=== PATIENT | female | born 1975 | race Caucasian/White ===

== ENCOUNTER 2017-01-03 00:39 | Inpatient (IN) | payer OTHER ==
[~2017-01-03] VITALS: Ht 160 cm; Wt 94.3 kg
--- NOTE | 2017-01-03 02:42 | ED ORDER SUMMARY ---
..... Patient: MARTINE BALDWIN OrderSheet [facility] VisitID: [id number] [place] [address] 41y, F Registration Date/Time: 01/03/2017 ORDER SHEET Weight: 88.4 kg (stated) Allergies: No Known Drug Allergy GENERAL ORDERS: US Abdomen Limited (Yes) Urgent (:01/03/2017 Ryley MENSAH) (Ack 1:21 Janiya) (1:24 EHassan R.N.) CBC w Diff Urgent (:01/03/2017 Ryley MENSAH) (Ack 1:21 Janiya) (1:24 EHassan R.N.) CMP Urgent (:01/03/2017 Ryley MENSAH) (Ack 1:22 Janiya) (1:24 EHassan R.N.) Amylase Urgent (:01/03/2017 Ryley MENSAH) (Ack 1:22 Janiya) (1:24 EHassan R.N.) Lipase Urgent (:01/03/2017 Ryley MENSAH) (Ack 1:22 Janiya) (1:24 EHassan R.N.) Urine Urgent (:01/03/2017 Ryley MENSAH) (Ack 1:22 Janiya) (1:24 EHassan R.N.) UA-Culture if indicated Urgent (:01/03/2017 Ryley MENSAH) (Ack 1:22 Janiya) (1:24 EHassan R.N.) MEDICATION ORDERS: GI Cocktail WHITE PO 50 mL (NOW) (:01/03/2017 Ryley MENSAH) (Ack 1:18 HSoule) (1:25 TLewis R.N.) IV FLUIDS: Zofran IV 4 mg (NOW) (:01/03/2017 Ryley MENSAH) (Ack 1:18 HSoule) (1:23 TLewis R.N.) IV Saline Lock (:01/03/2017 Ryley MENSAH) (Ack 1:18 HSoule) (1:23 Nitin R.N.) Cefotan IV 1 gm (NOW) (02:45 01/03/2017 Ryley MENSAH) (Ack 2:46 Brayan R.N.) (2:55 Brayan R.N.) Demerol IV 12.5 mg (NOW) (02:46 01/03/2017 Ryley MENSAH) (Ack 2:46 Brayan R.N.) (2:55 Brayan R.N.) ORDER SHEET NOTES: [Electronically signed by Jacob Meyer R.N. (03:29 01/03/2017)] [Electronically signed by Rashad Alejandro MD (09:34 01/03/2017)] [Electronically locked/signed by Jacob Meyer R.N. (03:29 01/03/2017)]
--- NOTE | 2017-01-03 02:42 | ED ORDER SUMMARY ---
..... Patient: MARTINE BALDWIN OrderSheet [facility] VisitID: [id number] [place] [address] 41y, F Registration Date/Time: 01/03/2017 ORDER SHEET Weight: 88.4 kg (stated) Allergies: No Known Drug Allergy GENERAL ORDERS: US Abdomen Limited (Yes) Urgent (:01/03/2017 Ryley MENSAH) (Ack 1:21 Janiya) (1:24 EHassan R.N.) CBC w Diff Urgent (:01/03/2017 Ryley MENSAH) (Ack 1:21 Janiya) (1:24 EHassan R.N.) CMP Urgent (:01/03/2017 Ryley MENSAH) (Ack 1:22 Janiya) (1:24 EHassan R.N.) Amylase Urgent (:01/03/2017 Ryley MENSAH) (Ack 1:22 Janiya) (1:24 EHassan R.N.) Lipase Urgent (:01/03/2017 Ryley MENSAH) (Ack 1:22 Janiya) (1:24 EHassan R.N.) Urine Urgent (:01/03/2017 Ryley MENSAH) (Ack 1:22 Janiya) (1:24 EHassan R.N.) UA-Culture if indicated Urgent (:01/03/2017 Rlyey MENSAH) (Ack 1:22 Janiya) (1:24 EHassan R.N.) MEDICATION ORDERS: GI Cocktail WHITE PO 50 mL (NOW) (:01/03/2017 Ryley MENSAH) (Ack 1:18 HSoule) (1:25 TLewis R.N.) IV FLUIDS: Zofran IV 4 mg (NOW) (:01/03/2017 Ryley MENSAH) (Ack 1:18 HSoule) (1:23 TLewis R.N.) IV Saline Lock (:01/03/2017 Ryley MENSAH) (Ack 1:18 HSoule) (1:23 Nitin R.N.) Cefotan IV 1 gm (NOW) (02:45 01/03/2017 Ryley MENSAH) (Ack 2:46 Brayan R.N.) (2:55 Brayan R.N.) Demerol IV 12.5 mg (NOW) (02:46 01/03/2017 Ryley MENSAH) (Ack 2:46 Brayan R.N.) (2:55 Brayan R.N.) ORDER SHEET NOTES: [Electronically signed by Jacob Meyer R.N. (03:29 01/03/2017)] [Electronically signed by Rashad Alejandro MD (09:34 01/03/2017)] [Electronically locked/signed by Jacob Meyer R.N. (03:29 01/03/2017)]
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
--- NOTE | 2017-01-03 02:42 | ED NURSING NOTES ---
Clinical Report - Nurses [facility] [address] [place] [address] 01/03/2017 0:42 Patient: MARTINE BALDWIN TRIAGE Triage time 0046 AM. Acuity: LEVEL 3. Chief Complaint: ABDOMINAL PAIN and NAUSEA. Alert. No acute distress. SEPSIS SCREEN: Sepsis Screen. Negative (no infection suspected/documented). EUGENIA COMA SCORE: Eugenia Coma Scale: 15- eyes open spontaneously (4); best verbal response- oriented x 4 (5); best motor response- obeys commands (6). --00:58 Cami Lacey R.N. 00:46 01/03/17. BP: 112/59. HR: 75. RR: 18. O2 saturation: 100%. Temp: 97.6 F (oral). Pain level now: 08/16. --00:58 Cami Lacey R.N. Weight: 88.4 kg stated. Height/Length: 63 inches Per Patient. BMI: 34.5. --00:51 Cami Lacey R.N. Medications Fentramine. --00:51 Cami Lacey R.N. Medication/allergy information source: the patient. --00:58 Caim Lacey R.N. Allergies No Known Drug Allergy. --02:44 Selvin Alfredo R.N. History Arrived by private vehicle. Historian: patient. Accompanied by family. Primary physician (Dr. Donovan). ( Pt states around 11 pm pt was woken up from sharp pain from right upper abdomen and radiates to lower back side, she states feeling nauseous with it ,no vomiting, has experienced chills and sweating. Here for evaluation). This started today. She has had fever, nausea and abdominal pain. No vomiting, diarrhea or constipation. Last oral intake by patient was 1 hour ago. 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 See EMS report. PAST MEDICAL HX: Immunizations: up-to-date. Last normal menstrual period- Dec 09. Sexual history - sexually active. Uses an intrauterine device. SOCIAL HX: Former smoker. Occasional alcohol use; consumes beer occasionally. No drug use. No recent travel. No infectious disease exposure. No known contact with a sick individual. ABUSE ASSESSMENT: No report of abuse. SELF HARM ASSESSMENT: A self harm assessment was performed. The patient answered "no" to the question "Do you have thoughts of harming or killing yourself?" and "Have you recently had thoughts about harming or killing others?". FALL RISK ASSESSMENT: Fall risk assessment completed. No fall risk identified. NUTRITIONAL RISK ASSESSMENT: The nutritional risk assessment revealed no deficiencies. FUNCTIONAL ASSESSMENT: Functional assessment: no impairments noted. LEARNING NEEDS ASSESSMENT: The learning needs assessment revealed no barriers. SKIN INTEGRITY ASSESSMENT: Skin integrity risk assessment completed. No skin integrity risk identified. --00:58 Cami Lacey R.N. PROBLEMS: Cellulitis. Anxiety Reaction. Depression. LNMP - Last Normal Menstrual Period. --00:51 Cami Lacey R.N. ADDITIONAL SURGERIES: no known surgeries. Interventions ID band on patient. --00:58 Cami Lacey R.N. PHYSICAL ASSESSMENT Ambulatory to room. GENERAL / NEURO / PSYCH: Alert. Oriented X 4. Appears in pain. HEENT: Mucous membranes are pink. RESPIRATORY: Respirations not labored. Breath sounds within normal limits. CVS: Capillary refill less than 2 seconds. GI / : The patient has had nausea. Abdominal tenderness. Bowel sounds within normal limits. No urethral discharge or vaginal discharge. SKIN: Skin is warm and dry. --01:00 Cami Lacey R.N. NURSING PROGRESS NOTES The initial plan of care for this patient has been created This plan of care was discussed with the patient. Patient gowned. Warming measures: blanket applied. Reassurance given. Two patient identifiers checked. Call light placed in reach. Side rails up x 1. Bed placed in lowest position. Brakes of bed on. Patient ready for evaluation- chart flagged and ED physician notified. --01:00 Cami Lacey R.N. 00:58 01/03/2017 Site #1 started via IV in the left antecubital space with an 20g angiocath, with aseptic technique and good blood return; one attempt. Blood drawn: rainbow set. Labeled in the presence of the patient and sent to the lab. Saline lock flushed with 10 mL saline. --01:03 Darcy ( Ultrasound at bedside). --01:23 Trinh Nails 01:23 01/03/2017 Zofran (Ondansetron HCl) IVP 4 mg given over 1 minute(s) via site #1. Allergies verified and confirmed 5 rights. IV patency established. IV site checked: no pain, redness, or swelling. IV flushed thoroughly pre- and post-medication administration. IVP given by RN. --01:23 Jacob Meyer R.N. Care transferred and report given (VALDO Nails). --01:24 Cami Lacey R.N. 01:25 01/03/2017 GI COCKTAIL WHITE (Simethicone) PO 50 mL given. Allergies verified and confirmed 5 rights. --01:25 Jacob Meyer R.N. 02:55 01/03/2017 Started 1 gm of Cefotan IVPB in bag #1 50 mL; at 100 mL/hr over 30 minute(s) via site #1; Allergies verified and confirmed 5 rights. IV patency established. IV site checked: no pain, redness, or swelling. IV flushed thoroughly pre- and post-medication administration. Completed per protocol. --02:55 Selvin Alfredo R.N. 02:55 01/03/2017 Demerol (Meperidine HCl) IVP 12.5 mg given over 2 minute(s) via site #1. Allergies verified and confirmed 5 rights. IV patency established. IV site checked: no pain, redness, or swelling. IV flushed thoroughly pre- and post-medication administration. IVP given by RN. --02:55 Selvin Alfredo R.N. 03:15 01/03/2017 Cefotan IVPB Discontinued: bag #1 completed. Total amount infused: 50 mL. IV patency established. IV site checked: no pain, redness, or swelling. IV flushed thoroughly. --03:15 Trinh Nails ( Pt is laying in bed with friend at bedside. Pt denies any pain at this time.). --03:19 Jacob Meyer R.N. 03:16 01/03/17. BP: 108/55. HR: 86. RR: 15. O2 saturation: 99%. Pain level now 0/10. --03:19 Jacob Meyer R.N. DISPOSITION / DISCHARGE 03:23 01/03/2017 Site #1 removed upon admission. Catheter intact. Manual pressure, pressure dressing, bandaid and bandage applied. --03:23 Trinh Nails 03:23 01/03/17. Condition at departure: stable. ( 03:16 01/03/17. BP: 108/55. HR: 86. RR: 15. O2 saturation: 99%. Pain level now 0/10. 3:19 Jacob Meyer R.N.). --03:23 Trinh Nails 03:23 01/03/17. Patient's personal items include: shirt and pants; items were placed in belongings bag and transported with the patient. --03:23 Trinh Nails Admitted to Acute Care (03:28). ( Report was give to Lauren COSTELLO). --03:28 Jacob Meyer R.N. Locked/Released at 01/03/2017 3:29 by Jacob Meyer R.N.
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
[2017-01-03 03:52] VITALS: BP 108/63
--- NOTE | 2017-01-03 06:11 | DIAGNOSTIC IMAGING REPORT ---
PROCEDURE: US ABDOMEN ULTRASOUND-LIMITED INDICATION: Right abdominal pain. TECHNIQUE: Cooper scale and color Doppler sonographic images of the abdomen were obtained. COMPARISON: None. FINDINGS: There are multiple large shadowing gallstones (largest 2 cm) with moderate gallbladder wall thickening (4 mm). Common duct is normal (2 mm). Portions of the liver, pancreas, and right kidney are seen, and are normal. IMPRESSION: 1. Cholelithiasis (multiple large shadowing gallstones) with moderate gallbladder wall thickening. Findings are compatible with cholecystitis (acute versus chronic).
[2017-01-03 06:36] VITALS: BP 96/57
--- NOTE | 2017-01-03 09:34 | ED MAR SUMMARY ---
..... Medication Administration Record [facility] [address] [place] [address] Patient: MARTINE BALDWIN Visit ID: [id number] 41y, F Weight: 88.4 kg Height/Length: 63 in BMI: 34.5 ALLERGIES: No Known Drug Allergy Given 01:23 01/03/2017 Jacob Meyer R.N. Medication Administered: ZOFRAN [IVP] (ONDANSETRON HCL), Dose: 4 mg IVP over 1 minute(s), Site: #1 left AC. Medication Ordered: Zofran IV 4 mg (NOW). Given 01:25 01/03/2017 Jacob Meyer R.N. Medication Administered: GI COCKTAIL WHITE [PO] (SIMETHICONE), Dose: 50 mL PO. Medication Ordered: GI Cocktail WHITE PO 50 mL (NOW). Start 02:55 01/03/2017 Selvin Alfredo R.N., Stop 03:15 01/03/2017 Trinh Nails, Medication Administered: CEFOTAN [IVPB], Dose: 1 gm IVPB over 30 minute(s), Rate: 100 mL/hr, Dispensed: 50 mL bag, Site: #1 left AC. Medication Ordered: Cefotan IV 1 gm (NOW). Given 02:55 01/03/2017 Selvin Alfredo R.N. Medication Administered: DEMEROL [IVP] (MEPERIDINE HCL), Dose: 12.5 mg IVP over 2 minute(s), Site: #1 left AC. Medication Ordered: Demerol IV 12.5 mg (NOW).
--- NOTE | 2017-01-03 09:34 | ED MAR SUMMARY ---
..... Medication Administration Record [facility] [address] [place] [address] Patient: MARTINE BALDWIN Visit ID: [id number] 41y, F Weight: 88.4 kg Height/Length: 63 in BMI: 34.5 ALLERGIES: No Known Drug Allergy Given 01:23 01/03/2017 Jacob Meyer R.N. Medication Administered: ZOFRAN [IVP] (ONDANSETRON HCL), Dose: 4 mg IVP over 1 minute(s), Site: #1 left AC. Medication Ordered: Zofran IV 4 mg (NOW). Given 01:25 01/03/2017 Jacob Meyer R.N. Medication Administered: GI COCKTAIL WHITE [PO] (SIMETHICONE), Dose: 50 mL PO. Medication Ordered: GI Cocktail WHITE PO 50 mL (NOW). Start 02:55 01/03/2017 Selvin Alfredo R.N., Stop 03:15 01/03/2017 Trinh Nails, Medication Administered: CEFOTAN [IVPB], Dose: 1 gm IVPB over 30 minute(s), Rate: 100 mL/hr, Dispensed: 50 mL bag, Site: #1 left AC. Medication Ordered: Cefotan IV 1 gm (NOW). Given 02:55 01/03/2017 Selvin Alfredo R.N. Medication Administered: DEMEROL [IVP] (MEPERIDINE HCL), Dose: 12.5 mg IVP over 2 minute(s), Site: #1 left AC. Medication Ordered: Demerol IV 12.5 mg (NOW).
--- NOTE | 2017-01-03 09:34 | ED DISCHARGE INSTRUCTIONS ---
Patient: MARTINE BALDWIN General Instructions [facility] VisitID: [id number] [place] [address] 41y, F Registration Date/Time: 01/03/2017 Acute cholecystitis with cholelithiasis. No obstruction or choledocholithiasis. ADDITIONAL INFORMATION Cholecystitis (Confirmed) Your abdominal pain is due to an inflammation and possible infection in the gallbladder. The gallbladder is a small sac under the liver, which stores and releases bile. Bile is a fluid that aids in the digestion of fat. A gallstone may form in this sac and block the passage of bile fluid. This can lead to mild to severe abdominal pain, fever, nausea and vomiting. Home Care: Rest in bed and follow a clear liquid diet until the pain, nausea and vomiting have gone away. Antibiotics and other medicine may be prescribed. Take this exactly as directed. You may use ibuprofen (Motrin, Advil) or naproxen (Naprosyn, Aleve) to control pain, unless another medicine was prescribed. [NOTE: If you have chronic kidney disease or ever had a stomach ulcer or GI bleeding, talk with your doctor before using these medicines.] Fat in your diet makes the gallbladder contract and may cause increased pain. Therefore, avoid fat in your diet over the next two days and follow a low-fat diet thereafter. Follow Up an infection in the gallbladder is a serious problem and must be watched carefully. See your doctor or return here for another exam in the next 1 to 2 days, or as directed by our staff. Once cholecystitis has occurred, removal of the gallbladder is usually required to prevent a recurrence. You can discuss this at your follow-up visit. Get Prompt Medical Attention if any of the following occur: Repeated vomiting Swelling of the abdomen Pain that lasts over 6 hours Fever of 100.4F (38C) or higher, or as directed by your healthcare provider Weakness, dizziness or fainting Dark urine or light colored stools Yellow color of the skin or eyes Chest, arm, back, neck or jaw pain You have been given the following additional information: Cholecystitis, Confirmed (Electronically signed by Rashad Alejandro MD 01/03/2017 9:34)
--- NOTE | 2017-01-03 09:34 | ED MED RECONCILIATION SUMMARY ---
Patient: MARTINE BALDWIN Medication Reconciliation Report [facility] VisitID: [id number] [address] [place] [address] 41y, F Registration Date/Time: 01/03/2017 Weight: 88.4 kg Height/Length: 63 in. BMI: 34.5 ALLERGIES: No Known Drug Allergy The patient's Home Medications are listed below: THE FOLLOWING MEDICATIONS NEED TO BE RECONCILED: Fentramine The source(s) of the original Home Medication information: patient The following Medications were given to the patient in the Emergency Department: Zofran [IVP] IVP 4 mg, administered: 01/03/2017 1:23:00 AM GI COCKTAIL WHITE [PO] PO 50 mL, administered: 01/03/2017 1:25:00 AM Cefotan [IVPB] IVPB bolus 0, then 1 gm 100 mL/hr, administered: 01/03/2017 2:55:00 AM Demerol [IVP] IVP 12.5 mg, administered: 01/03/2017 2:55:00 AM The following Medications were prescribed to the patient: None.
--- NOTE | 2017-01-03 09:34 | ED MED RECONCILIATION SUMMARY ---
Patient: MARTINE BALDWIN Medication Reconciliation Report [facility] VisitID: [id number] [address] [place] [address] 41y, F Registration Date/Time: 01/03/2017 Weight: 88.4 kg Height/Length: 63 in. BMI: 34.5 ALLERGIES: No Known Drug Allergy The patient's Home Medications are listed below: THE FOLLOWING MEDICATIONS NEED TO BE RECONCILED: Fentramine The source(s) of the original Home Medication information: patient The following Medications were given to the patient in the Emergency Department: Zofran [IVP] IVP 4 mg, administered: 01/03/2017 1:23:00 AM GI COCKTAIL WHITE [PO] PO 50 mL, administered: 01/03/2017 1:25:00 AM Cefotan [IVPB] IVPB bolus 0, then 1 gm 100 mL/hr, administered: 01/03/2017 2:55:00 AM Demerol [IVP] IVP 12.5 mg, administered: 01/03/2017 2:55:00 AM The following Medications were prescribed to the patient: None.
--- NOTE | 2017-01-03 09:34 | ED DISCHARGE INSTRUCTIONS ---
Patient: MARTINE BALDWIN General Instructions [facility] VisitID: [id number] [place] [address] 41y, F Registration Date/Time: 01/03/2017 Acute cholecystitis with cholelithiasis. No obstruction or choledocholithiasis. ADDITIONAL INFORMATION Cholecystitis (Confirmed) Your abdominal pain is due to an inflammation and possible infection in the gallbladder. The gallbladder is a small sac under the liver, which stores and releases bile. Bile is a fluid that aids in the digestion of fat. A gallstone may form in this sac and block the passage of bile fluid. This can lead to mild to severe abdominal pain, fever, nausea and vomiting. Home Care: Rest in bed and follow a clear liquid diet until the pain, nausea and vomiting have gone away. Antibiotics and other medicine may be prescribed. Take this exactly as directed. You may use ibuprofen (Motrin, Advil) or naproxen (Naprosyn, Aleve) to control pain, unless another medicine was prescribed. [NOTE: If you have chronic kidney disease or ever had a stomach ulcer or GI bleeding, talk with your doctor before using these medicines.] Fat in your diet makes the gallbladder contract and may cause increased pain. Therefore, avoid fat in your diet over the next two days and follow a low-fat diet thereafter. Follow Up an infection in the gallbladder is a serious problem and must be watched carefully. See your doctor or return here for another exam in the next 1 to 2 days, or as directed by our staff. Once cholecystitis has occurred, removal of the gallbladder is usually required to prevent a recurrence. You can discuss this at your follow-up visit. Get Prompt Medical Attention if any of the following occur: Repeated vomiting Swelling of the abdomen Pain that lasts over 6 hours Fever of 100.4F (38C) or higher, or as directed by your healthcare provider Weakness, dizziness or fainting Dark urine or light colored stools Yellow color of the skin or eyes Chest, arm, back, neck or jaw pain You have been given the following additional information: Cholecystitis, Confirmed (Electronically signed by Rashad Alejandro MD 01/03/2017 9:34)
[2017-01-03 10:08] VITALS: BP 113/67
--- NOTE | 2017-01-03 12:40 | DIAGNOSTIC IMAGING REPORT ---
PROCEDURE: XR INTRAOPERATIVE LAP RISSA INDICATION: LAP RISSA WITH GRAMS, WILL CALL, START TIME FLEXIBLE TECHNIQUE: Intraoperative fluoroscopy provided for Dr. Floyd performing an intraoperative cholangiogram following cholecystectomy. Total fluoroscopy time 0.07 minutes Cumulative dose 2.9 mGy. COMPARISON: None. FINDINGS: Two intraoperative fluoroscopic spot images of the right upper quadrant of the abdomen demonstrate cannulation of the cystic duct stump and opacification of the intrahepatic and extrahepatic biliary tree. There are no filling defects. There is normal passage of contrast into the duodenum. IMPRESSION: 1. Negative intraoperative cholangiogram.
[2017-01-03 13:34] VITALS: BP 158/87
[2017-01-03 13:43] VITALS: BP 155/94
--- NOTE | 2017-01-03 14:11 | CONSULTATION REPORT ---
DATE OF CONSULTATION: 01/03/2017 CHIEF COMPLAINT: 1. Right upper quadrant abdominal pain HISTORY OF PRESENT ILLNESS: The patient is a 41-year-old female who presented to the emergency room with severe upper abdominal pain localized in the right lower quadrant, first episode of discomfort. Denied any fever or chills, nausea or vomiting. Denied any jessa-colored stool or dark urine. Denies any prior history of pain. In the emergency department, an ultrasound of the gallbladder showed multiple stones and thickening of the gallbladder, consistent with acute cholecystitis. MEDICAL/SURGICAL HISTORY: Unremarkable. She is presently followed by Samantha Marcum MD at [facility]. MEDICATIONS: 1. A weight loss medication, cannot remember the dose. ALLERGIES: 1. NONE. SOCIAL HISTORY: . No children, does not smoke, rarely drinks alcohol. Drinks 16 ounces of coffee per day. Does not use recreational drugs. 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 FAMILY HISTORY: Mother's age 59, in good health. Father age 59, history of hypertension and hemochromatosis, no brothers. The patient has 3 sisters that are alive and well. REVIEW OF SYSTEMS: She is G2, P0, AB2. Menarche at age 16. Last menstrual period 12/09/2016. Last Pap smear 11 months ago. Denies any history of hepatitis, jaundice, rheumatic fever, blood transfusions, heart murmur requiring antibiotics, bleeding tendencies. The remaining 12-point review of systems is unremarkable and negative. PHYSICAL EXAMINATION: GENERAL: The patient is awake, alert, conversant, and does not appear to be in any acute discomfort. VITAL SIGNS: Blood pressure is 96/57, pulse 67, respirations 18, temperature is 98. HEENT: Pupils equal and reactive. No scleral icterus. External auditory canals clear. No nasal septal defect or discharge. Throat is clear and not injected. NECK: Supple. No JVD, carotid bruit or adenopathy. LUNGS: Clear. No rales, rhonchi, or wheezing. O2 saturation on room air 99%. HEART: Regular rhythm, no murmurs. ABDOMEN: Nondistended. Positive bowel sounds. She is quite tender in the right upper quadrant. There are no masses appreciable. EXTREMITIES: Full range of motion, active and passively, no pretibial edema. NEUROLOGIC: The patient is grossly intact with no focal motor neurologic deficits. SKIN: Warm and dry with no peripheral cyanosis. LYMPHATICS: No cervical, supraclavicular, axillary, or groin adenopathy. LAB/IMAGING: White count 15.6, hemoglobin and hematocrit 12.3 and 37.0 respectively. Sodium 132, potassium 4.3, chloride 106, bicarbonate 26, glucose 156, BUN 14, creatinine 0.7, total bilirubin 0.2, alkaline phosphatase 59, lipase 143. Review of the ultrasound shows a thickened wall gallbladder with multiple stones. IMPRESSION: 1. Symptomatic acute cholecystitis 2. Cholelithiasis PLAN: Laparoscopic cholecystectomy. The procedure has been explained to the patient, including potential risks but not exclusive of incisional hernia, incisional infection, conversion to open procedure, hemorrhage, transfusion, bile leak, damage to major structures requiring a second surgery to correct, damage to major ductal system requiring rerouting of small intestine to the liver, postoperative pneumonia and pulmonary embolus. The patient understands and agrees to proceed. At this point, all questions are answered to her satisfaction. We will schedule her for urgent surgery.
--- NOTE | 2017-01-03 14:21 | OPERATIVE REPORT ---
DATE OF SURGERY: 01/03/2017 SURGEON: Dolly Floyd III, MD MATERIALS PLANNING MANAGER: None. PREOPERATIVE DIAGNOSES: 1. Subacute cholecystitis 2. Cholelithiasis POSTOPERATIVE DIAGNOSES: 1. Subacute cholecystitis 2. Cholelithiasis PROCEDURES PERFORMED: 1. Laparoscopic cholecystectomy 2. Fluoroscopic intraoperative cholangiogram ANESTHESIA: General endotracheal. INDICATIONS: The patient is a 41-year-old female with right upper quadrant abdominal pain, normal liver function studies, including total bilirubin, alkaline phosphatase, and lipase, noted on ultrasound to have multiple stones and a thickened gallbladder wall. On physical examination, she was tender in the right upper quadrant and scheduled for urgent laparoscopic cholecystectomy. SURGICAL FINDINGS: The patient was noted to have a thin-walled anterior gallbladder, but the posterior wall was quite thickened and edematous. The patient was noted to have adhesions to the anterior wall of the gallbladder. The fluoroscopic intraoperative cholangiogram showed free flow of contrast material into the duodenum. No evidence of retained stone. Visualization of hepatic radicles, hepatic duct, and common bile duct. SURGICAL TECHNIQUE: The patient was brought to the operating room and placed in the dorsal supine position where she underwent general endotracheal anesthesia by the anesthesiology department. After proper anesthesia had taken effect, the patient 's abdomen was prepped using ChloraPrep and Betadine and draped in a sterile fashion. An infraumbilical incision was made, carried down through skin and subcutaneous tissue. A Veress needle was inserted through this site, into the abdominal cavity and after ascertaining its appropriate position with suction irrigation, pneumoperitoneum obtained using CO2 insufflation to approximately 14-15 mmHg pressure. Once this pressure was reached, the Veress needle was removed and replaced with a 10 mm trocar. The trocar was removed, leaving the sleeve behind, through which a laparoscopic video camera was introduced into the abdominal cavity. Under direct visualization, a separate 10 mm trocar was placed in the subxiphoid region. Each entered the abdominal cavity under direct visualization, approximately 3-4 fingerbreadths below the costal margin, anterolateral right abdominal wall. Two 5 mm trocars were placed under direct visualization into the abdominal cavity. The trocars were removed, leaving the sleeves behind, through which laparoscopic instrumentation was introduced into the abdominal cavity. The gallbladder was grasped and retracted cephalad. Adhesions to the anterior wall of gallbladder were taken down using electrocautery dissection, being careful to avoid injury to the duodenum. The cystic duct was circumferentially isolated using a combination of hydrodissection, blunt dissection and electrocautery. A clip was placed at the junction of the neck of the gallbladder and the cystic duct. A small incision made in the anterior surface of cystic duct. A percutaneous cholangiogram catheter was threaded through the anterior abdominal wall, into the cystic duct and clipped into position. A fluoroscopic intraoperative cholangiogram obtained with the aforementioned findings noted. Once completed, the percutaneous cholangiogram catheter was retrieved from the cystic duct and the abdominal cavity. The distal cystic duct was clipped in continuity, divided. The cystic artery identified, clipped in continuity and divided. The gallbladder was taken down from its bed in a retrograde fashion using electrocautery dissection. Once completely freed from its bed, it was transferred to a sterile specimen container bag and retrieved from the abdominal cavity and sent to pathology. The right upper quadrant was inspected for hemostasis. Assuring of proper hemostasis, the right upper quadrant was irrigated copiously with warm normal saline and antibiotic solution and the irrigant suctioned out. Approximately 30 mL of 0.5% Marcaine with epinephrine was sprayed over the right and left dome of the liver for postoperative analgesia. The pneumoperitoneum released and all trocars were removed from the abdominal cavity. All trocar sites approximated using 4-0 subdermal Polysorb and Steri- Strips. A sterile pressure occlusive dressing was placed over each site. The patient tolerated the procedure well, was extubated and transferred to the recovery room in stable condition. There were no intraoperative or anesthetic complications.
[2017-01-03 15:01] VITALS: BP 158/78
[2017-01-03] MEDS ORDERED: HYCET1 ML PO (16:46)
--- NOTE | 2017-01-03 16:47 | Provider's Discharge Care Plan ---
Problem, Goal, Plan Problem List 1. S/P laparoscopic cholecystectomy Goals: Improve disease control, Therapeutic intervention Instructions: Follow up as directed, Take meds as directed
--- NOTE | 2017-01-03 16:47 | Provider's Discharge Care Plan ---
Problem, Goal, Plan Problem List 1. S/P laparoscopic cholecystectomy Goals: Improve disease control, Therapeutic intervention Instructions: Follow up as directed, Take meds as directed
== END 2017-01-03 17:57 | disposition home or self-care (01) | DRG 263 ==
LOC: ED SRH 00:39 → ACUTE2 SRH 03:10 → TRANS SRH 03:10 → ACUTE2 SRH 03:49
PROVIDERS: ADMIT Specialist
PROC: BF131ZZ Fluoroscopy of Gallbladder and Bile Ducts using Low Osmolar Contrast (ICD-10-PCS; principal; 2017-01-03 12:00)
PROC: 0FT44ZZ Resection of Gallbladder, Percutaneous Endoscopic Approach (ICD-10-PCS; principal; 2017-01-03 12:00)
DX: K80.12 Calculus of gallbladder with acute and chronic cholecystitis without obstruction (principal); K82.8 Other specified diseases of gallbladder; M54.5 Low back pain
CPT/HCPCS: 50002; 60001; 70002; 80102; 80248; 82669; 82794; 82807; 83338; 83339; 83348; 83587; 83920; 83937; 83982; 84038; 90004; 90100; 92235; 92530; 93070; 95059